=== PATIENT | female | born 2000 | race American Indian/Alaskan Native ===

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

== ENCOUNTER 2021-10-02 14:01 | Emergency (ER) | payer SELFPAY ==
[2021-10-02] MEDS ORDERED: RABIES IMMUNE GLOBULIN P/F 300 UNIT/ML INJ 5 ML IM ONE (15:50)
[2021-10-02] MEDS ORDERED: NEOMY 3.5 MG/BACIT 400 UNITS/POLY B 5000 UNITS/GM OINT PACKET TP ONE (15:50)
[2021-10-02] MEDS ORDERED: RABIES VACCINE, HUMAN DIPLOID/PF 2.5 UNIT/ML VIAL IM ONE (15:50)
[2021-10-02 15:53] VITALS: BP 125/76
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
== END 2021-10-02 16:57 | disposition home or self-care (01) ==
LOC: ED 14:01
DX: S51.852A Open bite of left forearm, initial encounter (principal); S81.851A Open bite, right lower leg, initial encounter; W54.0XXA Bitten by dog, initial encounter; Y93.89 Activity, other specified; Y92.89 Other specified places as the place of occurrence of the external cause; Y99.8 Other external cause status
CPT/HCPCS: 90375; 90471; 90675; 96372; 99282

== ENCOUNTER 2021-10-29 10:24 | Emergency (ER) | payer SELFPAY ==
--- NOTE | 2021-10-29 11:00 | Emergency Department Report ---
Upper Extremity - HPI Stated Complaint: LFT HAND RING REMOVAL Time Seen by Provider: 10/29/21 10:57 Other History: Patient presents secondary to a ring stuck on her left ring finger. She states that she has 2 rings on her left ring finger. One of them is very tight. The other seems to be loose still. It became very tight last night and she could not get it off. She admits that her boyfriend told her to come in last night, but she did not. She came here today because her finger is hurting and she still cannot get her ring off. She has had no trauma. There is no fevers or chills. Has no cough congestion but there is no vomiting. Patient has not noticed any other digit pain or swelling. She is never had a problem like this before. Pain is constant. It is worse with any kind of movement or palpation. ED Review of Systems ROS: Stated complaint: LFT HAND RING REMOVAL Other details as noted in HPI Comment: All other systems reviewed and negative Constitutional: denies: fever Eyes: denies: eye pain ENT: denies: throat pain Respiratory: denies: cough Cardiovascular: denies: chest pain Endocrine: denies: unexplained weight loss Gastrointestinal: denies: abdominal pain Genitourinary: denies: dysuria Musculoskeletal: denies: back pain Skin: denies: rash Neurological: denies: headache Hematological/Lymphatic: denies: easy bruising ED Past Medical Hx - Past Medical History Hx Hypertension: No Hx Congestive Heart Failure: No Hx Diabetes: No Hx Deep Vein Thrombosis: No Hx Renal Disease: No Hx Sickle Cell Disease: No Hx Seizures: No Hx Asthma: No Hx COPD: No Hx HIV: No - Family History Family history: no significant - Social History Smoking Status: Never Smoker Substance Use Type: None - Medications Home Medications: Home Medications Medication Instructions Recorded Confirmed Last Taken Type Multivitamin Tablet 1 tab PO QDAY 10/22/18 10/02/21 10/16/18 History Ferrous Sulfate [Feosol 325 MG tab] 325 mg PO BID 30 Days #60 tablet 10/23/18 10/02/21 Unknown Rx Ibuprofen [Ibuprofen 800] 800 mg PO Q6H PRN 10 Days #30 10/23/18 10/02/21 Unknown Rx tablet MDD 3200mg oxyCODONE /ACETAMINOPHEN [Percocet 1 tab PO Q4HR PRN 14 Days #30 tab 10/23/18 10/02/21 Unknown Rx 5/325] Amoxicillin/Potassium Clav 1 each PO BID 10 Days #20 tablet 10/02/21 Unknown Rx [Augmentin 875-125 Tablet] Mupirocin [Bactroban 2% OINT] 1 applic TP TID #1 tube 10/02/21 Unknown Rx Upper Extremity Exam - Exam General: Vital signs noted. No distress. Alert and acting appropriately. Head and Torso: No HEENT Abnormality (PERRL. EOMI. Oropharynx is clear. Mucous membranes are moist. There is no facial asymmetry.), No Neck Tenderness (No meningismus), No Chest/Lungs Abnormality (Regular and rhythm. Clear bilaterally.), No Abdominal Tenderness (No rebound or guarding), No Back Tenderness (No CVA tenderness) Shoulder Exam: No Shoulder Tenderness, No Normal Range of Motion in Shoulder Arm Exam: No Arm/Humerus Tenderness Elbow: No Elbow Tenderness, No Normal Range of Motion in Elbow Forearm: No Forearm Tenderness Wrist: No Wrist Tenderness, No Normal ROM in Wrist Hand: Yes Digit Tenderness (Left ring finger), Yes Digit(s) Deformity (Left ring finger is edematous with 2 rings stuck proximally. These cannot be removed.), No Hand Tenderness, No Hand Deformity CMS Exam: No Normal Capillary Refill (3 seconds involving the left ring finger) ED Course - Reevaluation(s) Reevaluation #1: 10/29/21 13:11 Patient underwent procedural sedation for ring removal. She would not tolerate ring removal secondary to pain otherwise. Ring is now removed. We will allow her to completely wake up and recover. Reevaluation #2: 10/29/21 14:41 Patient is now awake and mentating. She did have a slight emergence reaction from ketamine and 0.5 mg of Ativan was administered. She has improved. Patient was subsequently discharged. - Moderate Sedation Indications: other (Ring removal) Presedation Evaluation: But developed, well-nourished female in moderate discomfort without respiratory distress. Heart is regular. Lungs are clear. Oropharynx is clear. Abdomen is soft and nontender. There is a ring stuck on the left ring finger which is edematous and exquisitely tender. ASA Class: I Mallampati Airway Score: 1 Time of Last PO Intake: 11:00 Preparation: scrap collector applied, pulse oximeter, capnometry used, supplemental O2 applied, suction/airway equipment at bedside, IV secured Ketamine: IV (100 mg and 2 separate doses after etomidate 40 mg total and separ ate doses) Complications: none Interventions: oxygen applied, other (Oral airway was used to put between the teeth) Patient Tolerated Procedure: other (Patient had abrasions to the left thumb from ring removal. There were abrasions to the left ring finger secondary to ring removal.) Additional Comments: Intraservice sedation time was 40 minutes ED Medical Decision Making - Medical Decision Making Patient presented for ring removal. This required extensive work. Ultimately, a ring cutter was used which the blade broke. We then used pliers from maintenance in order to completely remove the first ring. The second ring was able to be removed with ring cutters. This did require procedural sedation as the patient could not tolerate the pain. Patient was socially discharged. Dressing was applied. Tetanus booster was updated. Critical Care Time: No Critical care attestation.: If time is entered above; I have spent that time in minutes in the direct care of this critically ill patient, excluding procedure time. ED Disposition Clinical Impression: Foreign body finger, Ring or other jewelry causing external constriction, initial encounter Disposition: HOME / SELF CARE / HOMELESS Is pt being admited?: No Condition: Stable Instructions: Moderate Conscious Sedation, Adult, Care After Additional Instructions: ICE AND ELEVATE HAND AND FINGER. USE IBUPROFEN OR TYLENOL FOR PAIN. RETURN FOR PROBLEMS. Referrals: PRIMARY MD FERNANDO [Primary Care Provider] - 3-5 Days LEONA VILLARREAL MD [Staff Physician] - 3-5 Days
[2021-10-29] MEDS: ETOMIDATE 20 MG/10 ML INJ IV ONE ×2 (12:29→12:33)
[2021-10-29] MEDS ORDERED: KETAMINE 500 MG/5 ML VIAL MDV ONE (12:35)
[2021-10-29] MEDS ORDERED: LORazepam 2 MG/ML VIAL ONE (13:59)
[2021-10-29] MEDS ORDERED: LORazepam 2 MG/ML VIAL IV ONE (14:16)
[2021-10-29] MEDS ORDERED: KETAMINE 500 MG/5 ML VIAL MDV IV PRN (14:19)
[2021-10-29] MEDS ORDERED: ONDANSETRON 4 MG/2 ML INJ ONE (15:31)
[2021-10-29 16:45] VITALS: BP 136/82
== END 2021-10-29 16:44 | disposition home or self-care (01) ==
LOC: ED 10:24
DX: S60.455A Superficial foreign body of left ring finger, initial encounter (principal); Z79.899 Other long term (current) drug therapy; W49.04XA Ring or other jewelry causing external constriction, initial encounter; Y93.89 Activity, other specified; Y92.89 Other specified places as the place of occurrence of the external cause; Y99.8 Other external cause status
CPT/HCPCS: 96374; 99283; J2060; J2405; J3490